=== PATIENT | female | born 1930 | race Caucasian/White ===

== ENCOUNTER 2016-08-05 08:13 | Outpatient (CLI) | payer MEDICARE ==
[2016-08-05 09:07] LABS: ALT (SGPT) 11 U/L (8-55); AST (SGOT) 21 U/L (5-34); Albumin 3.9 g/dL (3.4-4.8); Alkaline Phosphatase 82 U/L (40-150); Anion Gap 14 mmol/L (10-20); BUN (Urea Nitrogen) 12 mg/dL (9.8-20.1); Bilirubin, Total 0.5 mg/dL (0.2-1.2); Calc. Creatinine Clearance 0 mL/min (70-130); Calcium 9.4 mg/dL (7.8-10.44); Carbon Dioxide 25 mmol/L (23-31); Cardiac Risk 3.4 (Less than 4.5); Chloride 103 mmol/L (98-107); Cholesterol 235 mg/dl (< 200 Desired); Estimated GFR-MDRD 62; Globulin 3.4 g/dL (2.4-3.5); Glucose 91 mg/dL (83-110); HDL Cholesterol 70 mg/dL (>60 Neg Risk); LDL Cholesterol, Calculated 149 mg/dL; Protein, Total 7.3 g/dL (6.0-8.3); Sodium 138 mmol/L (136-145); Triglycerides 82 mg/dL (Less than 150)
== END 2016-08-05 08:14 | disposition home or self-care (01) ==
LOC: MADLABBHPM 08:13
PROVIDERS: ATTEND Family Medicine
DX: E03.9 Hypothyroidism, unspecified (principal); E78.2 Mixed hyperlipidemia
CPT/HCPCS: 36415; 80053; 80061; 84443

== ENCOUNTER 2019-01-05 14:27 | Outpatient (CLI) | payer MEDICARE ==
--- NOTE | 2019-01-05 14:56 | RAD ---
XR Tib Fib Rt Leg 2 View INDICATION: Foreleg pain and injury FINDINGS: Bones: No acute fracture or subluxation is evident. Joints: No acute abnormality. Soft tissues: No radiopaque foreign body is evident. IMPRESSION: No acute osseous abnormality.
== END 2019-01-05 14:28 | disposition home or self-care (01) ==
LOC: MADRAD 14:27
PROVIDERS: ATTEND Family Medicine
DX: M79.604 Pain in right leg (principal)